=== PATIENT | female | born 1950 | race Two or more races ===

== ENCOUNTER 2025-01-24 15:25 | Inpatient (IN) | payer MEDICARE, SELFPAY ==
[2025-01-24] VITALS (13 sets, daily range): BP systolic 108–152; BP diastolic 52–87; PULSE 76–113; RESP 15–98; TEMP 36.9–39.5; O2SAT 94–99
--- NOTE | 2025-01-24 16:12 | EKG_ITS ---
[facility] Test Date: 2025-01-24 Pat Name: CORIE VILLAFANA Department: Room: - Gender: Female Vp: : 1950 Requested By: Malachi Frederick Order Number: [id number] Reading MD: Malachi Frederick Measurements Intervals [place] Rate: 112 P: -2 WV: 178 QRS: 54 QRSD: 86 T: -3 QT: 259 QTc: 354 Interpretive Statements SINUS TACHYCARDIA LOW QRS VOLTAGE IN PRECORDIAL LEADS [QRS DEFLECTION < 1.0 mV IN CHEST LEADS] POSSIBLE RIGHT VENTRICULAR CONDUCTION DELAY [RSR (QR) IN V1/V2] POSSIBLE INFERIOR MYOCARDIAL INFARCTION , PROBABLY OLD [30 ms Q WAVE IN II/aVF] ABNORMAL RHYTHM ECG No previous ECG available for comparison /store/S0/[id number].pdf
--- NOTE | 2025-01-24 16:12 | XR_ITS ---
Examination: CT abdomen and pelvis without contrast. Coronal 3-D reconstructions. Sagittal 2-D reconstructions. Date and time of exam: January 24, 2025, 1640 hours INDICATIONS: Fever chills abdominal pain beginning 2 days ago. CTDI: vol (mGy): 8.06 DLP: (mGycm): 410 Technique: Axial images of the abdomen have been obtained, 3 mm slice thickness Intravenous contrast material has not been administered. Low dose protocols were performed. One or more of the following dose reduction techniques were used; automated exposure control, adjustment of the mA and/or KV according to patient size, use of iterative reconstruction technique. Findings: No focal liver or splenic lesions., Liver is nodular in contour No extrahepatic biliary tract dilatation. Mild right hydronephrosis perinephric stranding, no renal or ureteral calculi No bladder mass or bladder calculi. No bowel obstruction No pericecal inflammatory change The Sriram structures are intact. IMPRESSION: Mild right hydronephrosis, consider urinary tract infection
--- NOTE | 2025-01-24 16:13 | XR_ITS ---
EXAMINATION: AP chest single view TECHNIQUE: Upright AP chest single view Date and time: January 24, 2025, 1624 hours INDICATIONS: Chest pain today, sepsis alert FINDINGS: Normal heart size No pneumonia or pulmonary edema. Prominent osteopenia IMPRESSION: No pneumonia or pulmonary edema
--- NOTE | 2025-01-24 16:15 | EDNOTE_ITS ---
ED Fever RME/HPI General Chief Complaint: Fever Stated Complaint: Fever, shaking, chills Time Seen by Provider: 01/24/25 15:46 Arrival date/time: 01/24/25 15:25 75-year-old female patient with significant history of hypertension diabetes mellitus, was brought in by family for evaluation regarding fever chills and diaphoresis. Has been sick since yesterday,'s chills, not feeling well, sleepy, severity moderate. 2 days ago patient complained of right flank pain, dysuria, severity moderate no vomiting no diar niurka no constipation no cough no other complaints noted. Sepsis alert was initiated right away for low-grade fever and tachycardia. Related Data Allergies Allergy/AdvReac Type Severity Reaction Status Date / Time No Known Allergies Allergy Verified 01/24/25 15:28 Review of Systems Review of Systems Narrative Review of Systems: Review of system reviewed and within normal limits except mentioned in HPI Physical Exam Narrative Physical exam: VITAL SIGNS: Reviewed. GENERAL APPEARANCE: Alert and interactive, follows commands, no acute distress, HEAD AND FACE: Non-traumatic. ENT: PERRL, pink conjunctivitis, eyelid no trauma, Mucous membrane moist. NECK: Supple, nontender, no nuchal rigidity. CHEST: No tenderness, no crepitus, no paradoxical movement, no retractions. LUNGS: Clear, well ventilated, symmetric, no rales, no wheezing, no ronchi, no stridor, good breath sounds bilaterally. HEART: Regular rate, regular rhythm, no murmur, no gallops. ABDOMEN: Soft, positive bowel sounds, nondistended, no guarding, nontender, no rebound, no masses, RECTAL: Deferred. GENITAL: Deferred. NEUROLOGICAL: Gross motor function intact sensory function intact, Appropriate for age. MUSCULOSKELETAL: low back nontender, full range of motion. EXTREMITIES: Nontender, full range of motion. SKIN: Color pink, dry, no rash, no lacerations, no abrasions, no contusions. LYMPHATICS: Deferred. Course Quality Measures none Orders Category Date Time Status Bedside COVID-19 Antigen Test NOW Care 01/24/25 16:14 Active COVID-19 Screening Questionnaire NOW Care 01/24/25 19:55 Active Hypnotherapist STAT Care 01/24/25 16:12 Active Continuous Pulse Oximetry STAT Care 01/24/25 16:12 Completed Decision to Admit X1 Care 01/24/25 19:55 Active EKG (ED ONLY) *Do not use* NOW Care 01/24/25 16:12 Completed In and Out Catheter X1PRN Care 01/24/25 16:12 Active Insert IV NOW Care 01/24/25 16:12 Active NPO STAT Care 01/24/25 16:12 Active Strict Intake and Output Routine Care 01/24/25 16:[address] abdomen pelvis wo con Stat Exams 01/24/25 16:12 Completed EKG (ED Only) Stat Exams 01/24/25 16:12 Draft XR chest 1V SEPSIS PROTOCOL Stat Exams 01/24/25 16:13 Completed B-Type Natriuretic Peptide Stat Lab 01/24/25 16:23 Completed Blood Culture (Lab) Stat Lab 01/24/25 16:23 Received CBC Stat Lab 01/24/25 16:23 Completed Comprehensive Metabolic Panel Stat Lab 01/24/25 16:23 Completed LDH (Lactate Dehydrogenase) Stat Lab 01/24/25 16:23 Completed Lactate (Lactic Acid) Stat Lab 01/24/25 16:23 Completed Lactic Acid, 3 HR Stat Lab 01/24/25 19:30 Ordered Lipase Stat Lab 01/24/25 16:23 Completed Magnesium Stat Lab 01/24/25 16:23 Completed Partial Thromboplastin Time Stat Lab 01/24/25 16:23 Completed Phosphorous Stat Lab 01/24/25 16:23 Completed Procalcitonin Stat Lab 01/24/25 16:23 Completed Prothrombin Time with INR Stat Lab 01/24/25 16:23 Completed Troponin I Stat Lab 01/24/25 16:23 Completed Urinalysis, C/S if Indicated Stat Lab 01/24/25 17:30 Completed Urine Culture Stat Lab 01/24/25 17:30 Received Acetaminophen Tab [Tylenol ES Tab] Med 01/24/25 17:37 Discontinued 1,000 mg PO X1 ONE Ibuprofen Tab [Motrin Tab] Med 01/24/25 18:46 Discontinued 800 mg PO X1 ONE Ketorolac Inj [Toradol Inj] Med 01/24/25 17:37 Discontinued 30 mg IVP X1 ONE Ringers Lactated 1000 ml [Lactated Ringers] 1,000 ml Med 01/24/25 16:12 Discontinued IV 999 mls/hr Ringers Lactated 1000 ml [Lactated Ringers] 1,000 ml Med 01/24/25 18:46 Discontinued IV 999 mls/hr cefTRIAXone/D5w 1gm IV premix [Rocephin/D5w 1gm IV Med 01/24/25 16:12 Discontinued premix] 1 gm in 50 ml IV X1 Oxygen Delivery NOW RT 01/24/25 16:12 Active Vital Signs Vital signs: Vital Signs Temperature 99.4 F 01/24/25 15:37 Pulse Rate 113 H 01/24/25 15:37 Respiratory Rate 20 01/24/25 15:37 Blood Pressure 143/65 H 01/24/25 15:37 Pulse Oximetry (%) 98 01/24/25 15:37 Oxygen Delivery Method Room Air 01/24/25 15:37 Fever MDM Narrative MDM Narrative:: 01/24/25 15:25 75-year-old female patient with significant history of hypertension diabetes mellitus, was brought in by family for evaluation regarding fever chills and diaphoresis. Has been sick since yesterday,'s chills, not feeling well, sleepy, severity moderate. 2 days ago patient complained of right flank pain, dysuria, severity moderate no vomiting no diarrhea no constipation no cough no other complaints noted. Sepsis alert was initiated right away for low-grade fever and tachycardia. EKG showed sinus tachycardia, ventricular rate of 112 bpm, no ST segment elevation depression noted. CBC showed leukocytosis 12.5, urinalysis significant for UTI glucose 268 patient is diabetic, lactic acid 0.4 Pro-Brian [address] scan of the abdomen and pelvis showed mild right hydronephrosis with perinephric periureteral fat stranding which may be related to recently passed right ureteric calculus versus pyelo ureteral nephritis. Patient received IV fluids total 2 L, Tylenol, Motrin, IV ceftriaxone. Plan of care discussed with family who agrees to be admitted. For sepsis secondary to acute pyelonephritis. Discussed with hospitalist, who admitted the patient. Patient data External records reviewed:: None Clinical information provided by:: patient Social determinants that could affect healthcare access:: none Patient has the following chronic illnesses:: Diabetes mellitus hypertension How is presenting disease/condition affected by chronic disease/condition?: exacerbated by Evaluation data The following diagnostics were reviewed and interpreted by me:: lab results, radiology exam(s) and EKG tracing(s) Lab and/or radiology exams considered but not ordered:: None Interpretation Summary: See MDM Medications / Prescriptions Medications or Prescriptions considered but not ordered:: None Medication administrations:: Medication Administration History Discontinued Medications Acetaminophen (Acetaminophen 500 Mg Tablet) 1,000 mg PO X1 ONE Stop: 01/24/25 17:38 Last Admin: 01/24/25 17:42 Dose: 1,000 mg Documented By: EF Lactated Ringer's (Lactated Ringers) 1,000 mls @ 999 mls/hr IV .Q1H1M ONE Stop: 01/24/25 17:12 Last Infusion: 01/24/25 18:45 Dose: Infused Documented By: Admin: 01/24/25 17:44 Dose: 999 mls/hr Documented By: EF Ceftriaxone Sodium/Dextrose (Rocephin/D5w 1gm Iv Premix) 1 gm in 50 mls @ 100 mls/hr IV X1 ONE Stop: 01/24/25 16:41 Last Infusion: 01/24/25 18:13 Dose: Infused Documented By: Admin: 01/24/25 17:43 Dose: 100 mls/hr Documented By: EF Lactated Ringer's (Lactated Ringers) 1,000 mls @ 999 mls/hr IV .Q1H1M ONE Stop: 01/24/25 19:46 Last Admin: 01/24/25 18:51 Dose: 999 mls/hr Documented By: EF Ibuprofen (Ibuprofen Tab 400 Mg Tablet) 800 mg PO X1 ONE Stop: 01/24/25 18:47 Last Admin: 01/24/25 18:51 Dose: 800 mg Documented By: EF Ketorolac Tromethamine (Ketorolac Inj 30 Mg/Ml Vial) 30 mg IVP X1 ONE Stop: 01/24/25 17:38 Last Admin: 01/24/25 17:42 Dose: Not Given Documented By: EF Non-Admin Reason: Cancelled by Provider See [facility] Consultations Consultation(s) initiated? (list below): No Diagnosis Fever Differential Diagnosis: pyelonephritis, viral infection and sepsis Most likely diagnosis given after review of the tests above:: Sepsis secondary to acute pyelonephritis Admission Indicated Admission indicated?: indicated Admission Request Was there a request for admission?: Yes Admission Attestation Admission request attestation: [facility]. Discussed patients ED course, exam findings, labs, and radiology results. The Hospitalist [agrees to accept the patient for admission. Disposition Plan Disposition Plan: Admit Discharge Plan Plan Patient Disposition: Admit Acute Care w/in Hospital Prescriptions/Referrals Referrals: No Primary/Family,Physician [Primary Care Provider] - In 1 week Problem List Clinical Impression: Sepsis, Acute pyelonephritis Patient/Caregiver Discharge Instructions Print Language: Qatari Stand Alone Forms: Regina Award Info., Patient Portal Info Letter
[2025-01-24 16:35] LABS: Lactate (Lactic Acid) 2.4 mMol/L (0.4-2.0)
[2025-01-24 16:49] LABS: Basophils # (Auto) 0.0 Thou/mm3 (0.0-0.2); Basophils % (Auto) 0 % (0-2.5); Eosinophils # (Auto) 0.0 Thou/mm3 (0.0-0.5); Eosinophils % (Auto) 0 % (0-10); Hematocrit 36.6 % (36.0-46.0); Hemoglobin 12.2 g/dL (12.0-16.0); Immature Granulocytes Auto 0.04 Thou/mm3 (0.00-0.00); Lymphocytes # (Auto) 0.9 Thou/mm3 (1.0-4.8); Lymphocytes % (Auto) 7 % (10-50); Mean Corpuscular HGB Conc 33.3 g/dl (31.0-37.0); Mean Corpuscular Hemoglobin 25.6 pg (25.0-35.0); Mean Corpuscular Volume 77 fL (80-100); Monocytes # (Auto) 0.9 Thou/mm3 (0.0-0.8); Monocytes % (Auto) 7 % (0-12); Neutrophils # (Auto) 10.7 Thou/mm3 (1.8-7.7); Neutrophils % (Auto) 85 % (37-80); Nucleated Red Blood Cell # 0.00 Thou/mm3 (0.00-0.00); Nucleated Red Blood Cell % 0 /100 WBC (0); Platelet Count 171 Thou/mm3 (140-440); RDW Standard Deviation 39.0 fL (36.4-46.3); Red Blood Count 4.76 Miln/mm3 (4.00-5.20); White Blood Count 12.5 Thou/mm3 (3.6-11.0)
[2025-01-24 17:15] LABS: Alanine Aminotransferase 28 U/L (10-49); Albumin, Serum 4.7 gm/dL (3.4-4.8); Albumin/Globulin Ratio 1.8 (1.2-2.2); Alkaline Phosphatase 84 U/L (46-116); Anion Gap 10 (7-16); Aspartate Amino Transferase 23 U/L (0-34); BUN/Creatinine Ratio 14 Ratio (12-20); Bilirubin,Total 1.1 mg/dL (0.3-1.2); Blood Urea Nitrogen 14 mg/dL (9-23); Calcium 9.4 mg/dL (8.3-10.6); Calcium (Corrected) 9.4 mg/dL (8.5-10.1); Carbon Dioxide 26.9 mMol/L (20.0-31.0); Chloride 96 mMol/L (98-107); Creatinine (Component) 1.0 mg/dL (0.6-1.3); Globulin 2.6 gm/dL (2.3-3.5); Glucose 268 mg/dL (74-106); LDH (Lactate Dehydrogenase) 184 U/L (120-246); Lipase 26 U/L (12-53); Magnesium 1.7 mg/dL (1.6-2.6); Osmolality,Calculated 275 (275-295); Phosphorous 2.7 mg/dL (2.4-5.1); Potassium 3.6 mMol/L (3.4-5.1); Sodium 133 mMol/L (136-145); Total Protein 7.3 gm/dL (5.7-8.2); Troponin I < 0.002 ng/mL (0.0-0.045); eGFR 59 See Note
[2025-01-24 17:20] LABS: Procalcitonin 5.30 ng/ml (0.0-0.49)
[2025-01-24 17:21] LABS: INR 1.1 (0.9-1.3); Partial Thromboplastin Time 30.8 Seconds (22.0-36.0); Prothrombin Time 11.6 Seconds (9.0-12.2)
[2025-01-24 17:29] LABS: B-Type Natriuretic Peptide 46 pg/mL (0-100)
[2025-01-24 17:39] LABS: Collection Type, Urine Clean Catch
[2025-01-24] MEDS: ACETAMINOPHEN 500 MG TABLET 1000 MG PO (17:42)
[2025-01-24] MEDS: cefTRIAXone/D5w 1gm IV premix 1 GM/50 ML BAG IV (17:43)
[2025-01-24] MEDS: RINGERS LACTATED 1000 ML 1,000 ML 999 ML IV ×2 (17:44→18:51)
[2025-01-24 17:45] LABS: Bilirubin,Urine Negative (Negative); Blood,Urine 2+ (Negative); Clarity,Urine Turbid (Clear/Hazy); Color,Urine Lt-Yellow (Lt Yel-Yel); Culture Indicated,Urine Yes; Glucose, Urine 4+ (Negative); Ketones,Urine Negative (Negative); Leukocyte Esterase,Urine Positive (Negative); Nitrite,Urine Positive (Negative); PH,Urine 6.5 (5.0-7.0); Protein,Urine 1+ (Neg - Trace); RBC,Urine 66 /hpf (0-3); Specific Gravity,Urine 1.016 (1.001-1.035); Squamous Epithelial Cell,Urine 1 /hpf (0-5); Urobilinogen,Urine Negative mg/dL (0.0-1.0); WBC,Urine 103 /hpf (0-5)
--- NOTE | 2025-01-24 18:37 | PRELIM_ITS ---
CT scan of the abdomen and pelvis without intravenous contrast (axial sections with sagittal and coronal reformats) January 24, 2025 1640 hours Clinical History: Right flank pain Radiation Dose: Total exam DLP 410 mGy/cm Comparison: No prior study is available for comparison. Findings: The lung bases are clear. There is mild right hydroureteronephrosis with perinephric, periureteric fat stranding. No ureteric calculus is noted. The liver demonstrates a nodular contour. The gallbladder, pancreas, spleen, and adrenals are unremarkable on this noncontrast study. No evidence of bowel obstruction. A moderate amount of fecal material is present in the colon. The appendix is not visualized. There is no mesenteric or retroperitoneal adenopathy. The urinary bladder is unremarkable. There is no free fluid or free air. The osseous structures are unremarkable. Impression: Mild right hydroureteronephrosis with perinephric, periureteric fat stranding which may be related to recently passed right ureteric calculus or pyelo uretronephritis. Recommend clinical and laboratory correlation. Liver demonstrates a nodular contour, which may represent cirrhosis. Report Electronically Signed By: Shady Mendoza 01/24/2025 6:37:26 PM [EST]
[2025-01-24] MEDS: IBUPROFEN TAB 400 MG TABLET 800 MG PO (18:51)
[2025-01-24 19:30] LABS: Reflex Lactate? Y
--- NOTE | 2025-01-24 20:03 | PRELIM_ITS ---
Radiograph of the chest (single view). January 24, 2025 1622 hours Clinical history: Sepsis Comparison: None. Findings: The heart, mediastinum and pulmonary william are unremarkable. There is a calcified granuloma in the left mid lung zone. The lungs are otherwise clear. There is no pleural effusion. The bony thorax is unremarkable. Impression: Normal radiograph of the chest. Report Electronically Signed By: Kevan Cardona 01/24/2025 8:03:31 PM [EST]
[2025-01-24 20:06] LABS: Lactic Acid, 3 HR 2.0 mMol/L (0.4-2.0)
--- NOTE | 2025-01-24 20:57 | ESHP_ITS ---
Documentation for date of: 01/24/25 HPI History of Present Illness History of present illness: 75-year-old female patient with significant history of hypertension diabetes mellitus, was brought in by family for evaluation regarding fever chills and diaphoresis. In the ED Sepsis alert was initiated right away for low-grade fever and tachycardia. Patient admitted for sepsis r/o 2/2 pyelonephritis ED Course Summary Vitals: BP 143/65 HR 113 RR 20 T 99.4 --> 103.1F O2 sat 98% RA Labs: WBC 12.5 MCV 77 coags wnl, Na 133 (corrected Na 136) glucose 268, lactic acid 2.4, procal 5.3. UA was turbid protein +1 glucose +4 blood +2 RBC 66 WBC 103 Leuk Esterase+ Sq epi +1 Imaging: EKG sinus tachy QTC 354. CXR no PNA or pulm edema. CTAP mild right hydronephrosis Treatment: Ibuprofen, LR 2L, tylenol, and ceftriaxone 1g IV Upon initial examination patient was sitting comfortably in gurney. States pain management has helped her tremendously and her back pain has resolved. She first noticed urinary discomfort about one month ago when driving to [place] from [place] to spend Thanksgiving with her brother. She reports that they made frequent stops for her to urinate and that she did not hold her bladder for too long. She is a who has not had any change in sexual partners or complaints of vaginal dryness. She does not take a SGLT2i. 2 days ago she felt increased urinary discomfort, fevers, chills, and diaphoresis, and began noticing right sided flank pain. She denies vomiting, nausea, diarrhea, constipation, blood in urine. Code: Full Insulin: 30 units x1/day im AM, Metformin 100mg BID Medical Hx: T2DM on insulin, HTN Medications: Unsure of BP medicine, pending med rec Allergies: KNA Surgical history: Denies Fhx: Noncontributory Living: In [place], staying the month in [place] with brother for Thanksgiving Alcohol: Denies Cigarettes/tobacco: 1 cig/day for 20 years Recreational drugs: Denies Patient admitted for: Sepsis r/o most likely secondary to pyelonephritis All 12 systems reviewed and were negative except otherwise stated in HPI. Exam Vital Signs Temp Pulse Resp BP Pulse Ox O2 Del Method 99.3 F 97 16 120/77 96 Room Air 01/24/25 19:51 01/24/25 19:03 01/24/25 19:03 01/24/25 19:03 01/24/25 19:03 01/24/25 19:03 Narrative Exam GENERAL APPEARANCE: AOx4. NAD, activity normal for age, well developed/ well nourished, no cyanosis, pallor, or diaphoresis. HEENT: Normocephalic atraumatic, no facial trauma, neck is supple. Lids/conjunctiva normal. Mucous membranes moist, nares normal, lips/teeth normal uvula midline without oral pharyngeal erythema, exudate or swelling TMs normal bilaterally. No lymphangitis/lymphedema. CARDIAC: Regular rate and rhythm, S1+S2 heard. No murmurs, rubs, or gallops noted RESPIRATORY: respiratory effort normal, speaks in full sentences, no tripod position, no accessory muscle use. Lungs clear to auscultation without rhonchi, wheezes, rales ABDOMINAL: NBS. Soft, ND/NT. No evidence of fluid wave. No pulsatile masses on exam, rebound tenderness, Rushing sign or pain over Mcburney's point. MUSCLES/EXTREMITIES: No abnormal range of motion, no swelling. DERM: Warm, pink and dry. No rashes, dermatoses, petechiae or lesions. NEUROLOGICAL: Speech is clear and appropriate. Normal level of consciousness. Gait and coordination are normal. 5/5 strength in all extremities. PSYCH: Normal mood and affect. Judgement/competence is appropriate Urinary: -CVA tenderness (patient reports much improved with pain medicine) Results: Labs 01/26/25 04:20 01/26/25 04:20 Labs: Short CBC 01/24/25 Range/Units 16:23 WBC 12.5 H (3.6-11.0) Thou/mm3 Hgb 12.2 (12.0-16.0) g/dL Hct 36.6 (36.0-46.0) % Plt Count 171 (140-440) Thou/mm3 BMP 01/24/25 16:23 Sodium 133 L Potassium 3.6 Chloride 96 L Carbon Dioxide 26.9 BUN 14 Creatinine 1.0 Glucose 268 H Calcium 9.4 Cardiac Enzymes 01/24/25 Range/Units 16:23 Troponin I < 0.002 (0.0-0.045) ng/mL Liver Function 01/24/25 Range/Units 16:23 Total Bilirubin 1.1 (0.3-1.2) mg/dL AST 23 (0-34) U/L ALT 28 (10-49) U/L Alkaline Phosphatase 84 (46-116) U/L Albumin 4.7 (3.4-4.8) gm/dL Urine 01/24/25 Range/Units 17:30 Urine Color Lt-Yellow (Lt Yel-Yel) Urine Clarity Turbid A (Clear/Hazy) Urine pH 6.5 (5.0-7.0) Ur Specific [place] 1.016 (1.001-1.035) Urine Protein 1+ A (Neg - Trace) Urine Glucose (UA) 4+ A (Negative) Quality Measures Quality Measures VTE prophylaxis Advance care planning discussed with:: patient Medications Home Medications and Allergies Home Medications ?Medication ?Instructions ?Recorded ?Confirmed ?Type amlodipine 10 mg tablet 10 mg PO QDAY 01/25/2501/25 History atorvastatin 20 mg tablet (Lipitor) 20 mg PO QDAY 12/1101/25/25 History lisinopril 20 1 tab PO QDAY 01/25/2501/25 History mg-hydrochlorothiazide 25 mg tablet metformin 1,000 mg tablet 1,000 mg PO BID 01/25/2512/11 History Allergies Allergy/AdvReac Type Severity Reaction Status Date / Time No Known Allergies Allergy Verified 01/24/25 15:28 Visit Medications Acetaminophen (Acetaminophen 325 Mg Tablet) 650 mg PO Q6H PRN PRN Reason: Fever >100.4 or pain 1-3 Stop: 02/23/25 20:37 Hydrocodone Bitart/Acetaminophen (Hydrocodone/Apap 5/325 Tablet) 1 tab PO Q4HR PRN PRN Reason: PAIN SCALE 4-6 (Moderate Stop: 01/29/25 20:37 Docusate Sodium (Docusate Sod 100 Mg Capsule) 100 mg PO QDAY [facility]; Protocol Stop: 02/24/25 08:59 Famotidine (Famotidine Inj 10 Mg/Ml Vial 2 Ml) 20 mg IVP Q12HR [facility] Stop: 02/23/25 20:59 Heparin Sodium (Porcine) (Heparin Sod Inj 5000 Unit/Ml Vial) 5,000 unit SC Q12HR NIKOLAS Stop: 02/07/25 20:59 Lactated Ringer's (Lactated Ringers) 1,000 mls @ 19.2 mls/hr IV .Q24H NIKOLAS Stop: 02/23/25 20:44 Ceftriaxone Sodium 2 gm/ (Sodium Chloride) 50 mls @ 100 mls/hr IV QDAY NIKOLAS Stop: 01/31/25 20:48 Ondansetron HCl (Ondansetron Inj 2 Mg/Ml Inj 2 Ml) 4 mg IVP Q6H PRN; Protocol PRN Reason: NAUSEA OR VOMITING Stop: 02/23/25 20:37 Discontinued Medications Acetaminophen (Acetaminophen 500 Mg Tablet) 1,000 mg PO X1 ONE Stop: 01/24/25 17:38 Last Admin: 01/24/25 17:42 Dose: 1,000 mg Lactated Ringer's (Lactated Ringers) 1,000 mls @ 999 mls/hr IV .Q1H1M ONE Stop: 01/24/25 17:12 Last Infusion: 01/24/25 18:45 Dose: Infused Ceftriaxone Sodium/Dextrose (Rocephin/D5w 1gm Iv Premix) 1 gm in 50 mls @ 100 mls/hr IV X1 ONE Stop: 01/24/25 16:41 Last Infusion: 01/24/25 18:13 Dose: Infused Lactated Ringer's (Lactated Ringers) 1,000 mls @ 999 mls/hr IV .Q1H1M ONE Stop: 01/24/25 19:46 Last Infusion: 01/24/25 19:52 Dose: Infused Ibuprofen (Ibuprofen Tab 400 Mg Tablet) 800 mg PO X1 ONE Stop: 01/24/25 18:47 Last Admin: 01/24/25 18:51 Dose: 800 mg Ketorolac Tromethamine (Ketorolac Inj 30 Mg/Ml Vial) 30 mg IVP X1 ONE Stop: 01/24/25 17:38 Last Admin: 01/24/25 17:42 Dose: Not Given Assessment & Plan Plan 75-year-old female patient with significant history of hypertension diabetes mellitus, was brought in by family for evaluation regarding fever chills and diaphoresis. In the ED Sepsis alert was initiated right away for low-grade fever and tachycardia. Patient admitted for sepsis r/o 2/2 pyelonephritis #Sepsis #UTI/pyelonephritis #Lactic acidosis Patient came in and found to have 2 or more SIRS criteria (Vbpj692>100.4, HR 113> 90, WBC >12,000, renal source, lactic acid 2.4) and was evaluated for sepsis. Pateint started on IV abx and fluids in the ED Temperature decreased to 99.3F, HR downtrended to 86, lactic acid 2.4--> 2.0). Patient endorses urinary discomfort with fevers chills and diaphoresis with 2 days of right flank pain. On inital evaluation the flank pain had resolved with pain management by the ED. She has not noticed any blood in her urine, recent vaginal dryness, no change in sexual partners as patient is a . No history of UTIs other than when she gave decades ago. She does not take SGLT2i. UA was turbid protein +1 glucose +4 blood +2 RBC 66 WBC 103 Leuk Esterase+ Sq epi +1. CTAP mild right hydronephrosis Plan: -Ceftriaxone 2g IV (01/24 - -IVF LR 30cc/kg --> 19.2mL/hr -FUP urine cx:___ -FUP blood cx:___ -Narco 5 Q4HR for pain control 4-6 #Asymptomatic mild hyponatremia Na133 Most likely pseudohyponatremia/dilutional. High blood glucose increases plasma osmolality. Water shifts out of cells into extracellular space --> diluting serum sodium concentration. Correction formula--> Corrected Na=Measured Na+1.6((glucose-100)/100) 133+1.6x((268-100)/100)= 135.7mEq/L Patient does not endorse any symptoms of headache, NV, fatigue, confusion, disorientation, muscle cramps, or increased urination. Plan: -Continue IV fluids -CTM renal panel in AM -Goal 4-6 Samir/L increase in sodium over 24 hours #Hx of T2DM requiring insulin Patient reports 30 units of insulin in AM at homoe and 1000mg BID metformin. Glucose 268 on admission. Plan: -ISS step 2 -Bedside glucose checks ACHS Health Maintenance: Code status: Full DVT prophylaxis: Heparin subq Q12HR GI prophylaxis: Famotidine Diet: Carb consistent Peterson: None Lines: PIV Supplemental O2: None [facility]UTI work up Patient seen and reviewed with attending Dr. Vaughan. Note written by Romie Santillan MD PGY-1 Attending Provider Attestation/Addendum After examination of the patient and review of the clinical data I feel that this patient needs admission to the hospital for further treatment/evaluation. Plan of care discussed with patient and is in agreement. I Ez Vaughan MD, attest that I was physically present for pace portions of evaluation, and examined patient, labs and imagings and plan of care were discussed with IM residents team, and I agree with the findings and plans documented above.
[2025-01-24] MEDS: FAMOTIDINE INJ 10 MG/ML VIAL 2 ML 20 MG IVP (23:17)
[2025-01-24] MEDS: RINGERS LACTATED 1000 ML 1,000 ML 75 ML IV (23:19)
[2025-01-24] MEDS: HEPARIN SOD INJ 5000 UNIT/ML VIAL SC (23:19)
[2025-01-25] VITALS (12 sets, daily range): BP systolic 93–147; BP diastolic 52–84; PULSE 71–102; RESP 16–96; TEMP 36.1–39.5; O2SAT 95–98
[2025-01-25 05:16] LABS: Basophils # (Auto) 0.0 Thou/mm3 (0.0-0.2); Basophils % (Auto) 0 % (0-2.5); Eosinophils # (Auto) 0.0 Thou/mm3 (0.0-0.5); Eosinophils % (Auto) 0 % (0-10); Hematocrit 32.3 % (36.0-46.0); Hemoglobin 10.9 g/dL (12.0-16.0); Immature Granulocytes Auto 0.05 Thou/mm3 (0.00-0.00); Lymphocytes # (Auto) 0.7 Thou/mm3 (1.0-4.8); Lymphocytes % (Auto) 6 % (10-50); Mean Corpuscular HGB Conc 33.7 g/dl (31.0-37.0); Mean Corpuscular Hemoglobin 25.8 pg (25.0-35.0); Mean Corpuscular Volume 77 fL (80-100); Monocytes # (Auto) 1.0 Thou/mm3 (0.0-0.8); Monocytes % (Auto) 9 % (0-12); Neutrophils # (Auto) 9.0 Thou/mm3 (1.8-7.7); Neutrophils % (Auto) 84 % (37-80); Nucleated Red Blood Cell # 0.00 Thou/mm3 (0.00-0.00); Nucleated Red Blood Cell % 0 /100 WBC (0); Platelet Count 152 Thou/mm3 (140-440); RDW Standard Deviation 38.6 fL (36.4-46.3); Red Blood Count 4.22 Miln/mm3 (4.00-5.20); White Blood Count 10.7 Thou/mm3 (3.6-11.0)
[2025-01-25 06:13] LABS: Alanine Aminotransferase 21 U/L (10-49); Albumin, Serum 4.0 gm/dL (3.4-4.8); Albumin/Globulin Ratio 1.9 (1.2-2.2); Alkaline Phosphatase 73 U/L (46-116); Anion Gap 7 (7-16); Aspartate Amino Transferase 20 U/L (0-34); BUN/Creatinine Ratio 10 Ratio (12-20); Bilirubin,Total 1.2 mg/dL (0.3-1.2); Blood Urea Nitrogen 8 mg/dL (9-23); Calcium 9.1 mg/dL (8.3-10.6); Calcium (Corrected) 9.1 mg/dL (8.5-10.1); Carbon Dioxide 26.8 mMol/L (20.0-31.0); Cardiac Risk Estimate 1.9 RATIO (3.7-5.6); Chloride 100 mMol/L (98-107); Cholesterol 91 mg/dL (132-200); Creatinine (Component) 0.8 mg/dL (0.6-1.3); Estimated Creatinine Clearance 53.4 mL/min (>60); Globulin 2.1 gm/dL (2.3-3.5); Glucose 209 mg/dL (74-106); HDL Cholesterol 48 mg/dL (40-60); LDL Cholesterol,Calculated 24 mg/dL (0-130); Magnesium 1.6 mg/dL (1.6-2.6); Osmolality,Calculated 272 (275-295); Phosphorous 2.4 mg/dL (2.4-5.1); Potassium 3.2 mMol/L (3.4-5.1); Sodium 134 mMol/L (136-145); Total Protein 6.1 gm/dL (5.7-8.2); Triglycerides 93 mg/dL (30-150); eGFR > 60 See Note
[2025-01-25] MEDS: ACETAMINOPHEN 325 MG TABLET 650 MG PO ×3 (07:05→20:42)
[2025-01-25] MEDS: INSULIN LISPRO (AdmeLOG) 1 UNIT/0.01 ML UNIT SC ×4 (07:10→20:48)
[2025-01-25] MEDS: DOCUSATE SOD 100 MG CAPSULE PO (08:00)
[2025-01-25] MEDS: HEPARIN SOD INJ 5000 UNIT/ML VIAL SC ×2 (08:00→20:21)
[2025-01-25] MEDS: FAMOTIDINE INJ 10 MG/ML VIAL 2 ML 20 MG IVP ×2 (08:00→20:12)
[2025-01-25] MEDS: Magnesium Sulfate 2 GM Ivpb 2 GM/50 ML BAG IV (08:54)
[2025-01-25] MEDS: HYDROcodone/APAP 5/325 TABLET 1 TAB PO ×2 (12:28→18:35)
--- NOTE | 2025-01-25 14:20 | PC.PT ---
Patient approached for PT evaluation but requested to hold off for today due to ongoing fever and not feeling well.
--- NOTE | 2025-01-25 15:53 | ESPR_ITS ---
<Statement entered by Bradly Mcdonald MD - 02/05/25 08:05> I reviewed above note and agree with findings and plans. I have also personally examined the patient with medicine team and went over assessment and plan with medical team including application internship and resident physician. Documentation for date of: 01/25/25 Subjective Subjective Interval history: Patient is seen and examined at bedside. Admitted overnight in view of urinary tract infection with suspected underlying right pyelonephritis Denies any other complaints and reported that she is doing well and no burning micturition or chills as of this morning Labs done this morning significant for potassium 3.2 which is repleted with 40 mill colons of oral potassium and noted to have glucose of 209 Started on degludec 8 units at bedtime. Will adjust the dose of the insulin based on morning blood sugars and will continue sliding scale for now HbA1c is ordered, Will follow-up with results Pending urine cultures Exam Vital Signs Temp Pulse Resp BP Pulse Ox O2 Del Method O2 Flow Rate 98.0 F 101 H 16 121/64 96 Room Air 2 01/25/25 12:00 01/25/25 12:00 01/25/25 12:00 01/25/25 12:00 01/25/25 12:00 01/25/25 12:00 01/25/25 08:00 Narrative Exam General: Awake. HEENT: Normocephalic, atraumatic, mucous membranes moist. Heart: Regular rate and rhythm, no murmurs. Lungs: Clear to auscultation with no wheezing or crackles. Abdomen: Soft, nondistended, nontender, positive bowel sounds. ?No guarding or rebound tenderness. Neurologic: Alert and oriented x3, no gross neurological deficit, and patient able to move all 4 extremities. Extremities: No edema. Skin: No rash or ecchymoses. Objective Labs 01/25/25 04:50 01/25/25 04:50 Labs: Laboratory Results - last 24 hr 01/24/25 01/24/25 01/24/25 16:23 17:30 19:46 WBC 12.5 H RBC 4.76 Hgb 12.2 Hct 36.6 MCV 77 L MCH 25.6 MCHC 33.3 RDW Std Deviation 39.0 Plt Count 171 Neut % (Auto) 85 H Lymph % (Auto) 7 L [place] % (Auto) 7 Eos % (Auto) 0 Baso % (Auto) 0 Neut # (Auto) 10.7 H Lymph # (Auto) 0.9 L [place] # (Auto) 0.9 H Eos # (Auto) 0.0 Baso # (Auto) 0.0 Immature Gran # (Auto) 0.04 H Absolute Nucleated RBC 0.00 Immature Gran % 0 Nucleated RBC % 0 PT 11.6 INR 1.1 APTT 30.8 Sodium 133 L Potassium 3.6 Chloride 96 L Carbon Dioxide 26.9 Anion Gap 10 BUN 14 Creatinine 1.0 Estim Creat Clear Calc Not Performed. eGFR 59 L BUN/Creatinine Ratio 14 Glucose 268 H Calculated Osmolality 275 Lactic Acid 2.4 H 2.0 Calcium 9.4 Corrected Calcium 9.4 Phosphorus 2.7 Magnesium 1.7 Total Bilirubin 1.1 AST 23 ALT 28 Alkaline Phosphatase 84 Lactate Dehydrogenase 184 Troponin I < 0.002 B-Natriuretic Peptide 46 Total Protein 7.3 Albumin 4.7 Globulin 2.6 Albumin/Globulin Ratio 1.8 Triglycerides Cholesterol LDL Cholesterol, Calc HDL Cholesterol Cholesterol/HDL Ratio Lipase 26 Procalcitonin 5.30 H Ur Collection Type Clean Catch Urine Color Lt-Yellow Urine Clarity Turbid A Urine pH 6.5 Ur Specific [place] 1.016 Urine Protein 1+ A Urine Glucose (UA) 4+ A Urine Ketones Negative Urine Blood 2+ A Urine Nitrite Positive Urine Bilirubin Negative Urine Urobilinogen (Auto) Negative Ur Leukocyte Esterase Positive Urine RBC 66 H Urine WBC 103 H Ur Squamous Epith Cells 1 Urine Bacteria None Ur Culture Indicated? Yes 01/25/25 04:50 WBC 10.7 RBC 4.22 Hgb 10.9 L Hct 32.3 L MCV 77 L MCH 25.8 MCHC 33.7 RDW Std Deviation 38.6 Plt Count 152 Neut % (Auto) 84 H Lymph % (Auto) 6 L [place] % (Auto) 9 Eos % (Auto) 0 Baso % (Auto) 0 Neut # (Auto) 9.0 H Lymph # (Auto) 0.7 L [place] # (Auto) 1.0 H Eos # (Auto) 0.0 Baso # (Auto) 0.0 Immature Gran # (Auto) 0.05 H Absolute Nucleated RBC 0.00 Immature Gran % 1 H Nucleated RBC % 0 PT INR APTT Sodium 134 L Potassium 3.2 L Chloride 100 Carbon Dioxide 26.8 Anion Gap 7 BUN 8 L Creatinine 0.8 Estim Creat Clear Calc 53.4 L eGFR > 60 BUN/Creatinine Ratio 10 L Glucose 209 H D Calculated Osmolality 272 L Lactic Acid Calcium 9.1 Corrected Calcium 9.1 Phosphorus 2.4 Magnesium 1.6 Total Bilirubin 1.2 AST 20 ALT 21 Alkaline Phosphatase 73 Lactate Dehydrogenase Troponin I B-Natriuretic Peptide Total Protein 6.1 Albumin 4.0 D Globulin 2.1 L Albumin/Globulin Ratio 1.9 Triglycerides 93 Cholesterol 91 L LDL Cholesterol, Calc 24 HDL Cholesterol 48 Cholesterol/HDL Ratio 1.9 L Lipase Procalcitonin Ur Collection Type Urine Color Urine Clarity Urine pH Ur Specific [place] Urine Protein Urine Glucose (UA) Urine Ketones Urine Blood Urine Nitrite Urine Bilirubin Urine Urobilinogen (Auto) Ur Leukocyte Esterase Urine RBC Urine WBC Ur Squamous Epith Cells Urine Bacteria Ur Culture Indicated? Quality Measures Quality Measures none Advance care planning discussed with:: patient Assessment & Plan Assessment Current Active Medications: Generic Name Dose Route Start Last Admin Trade Name Freq PRN Reason Stop Dose Admin Acetaminophen 650 mg 01/24/25 20:38 01/25/25 07:05 Acetaminophen 325 Mg Tablet PO 02/23/25 20:37 650 mg Q6H PRN Administration Fever >100.4 or pain 1-3 Hydrocodone Bitart/Acetaminophen 1 tab 01/24/25 20:38 01/25/25 12:28 Hydrocodone/Apap 5/325 Tablet PO 01/29/25 20:37 1 tab Q4HR PRN Administration PAIN SCALE 4-6 (Moderate Dextrose 25 ml 01/24/25 21:21 Dextrose 50%-Water Inj 50 Ml Syringe IV 02/23/25 21:20 Q15MIN PRN BG 50-70 responsive npo pt Dextrose 50 ml 01/24/25 21:21 Dextrose 50%-Water Inj 50 Ml Syringe IV 02/23/25 21:20 Q15MIN PRN BG <50 OR BG <70 & pt unresponsive Docusate Sodium 100 mg 01/25/25 09:00 01/25/25 08:00 Docusate Sod 100 Mg Capsule PO 02/24/25 08:59 100 mg QDAY NIKOLAS Administration Protocol Famotidine 20 mg 01/24/25 21:00 01/25/25 08:00 Famotidine Inj 10 Mg/Ml Vial 2 Ml IVP 02/23/25 20:59 20 mg Q12HR NIKOLAS Administration Glucagon 1 mg 01/24/25 21:21 Glucagon Inj 1 Mg Vial IM Q15MIN PRN BG <70, and no IV access Heparin Sodium (Porcine) 5,000 unit 01/24/25 21:00 01/25/25 08:00 Heparin Sod Inj 5000 Unit/Ml Vial SC 02/07/25 20:59 5,000 unit Q12HR NIKOLAS Administration Ceftriaxone Sodium 2 gm/ 50 mls @ 100 mls/hr 01/25/25 21:00 Sodium Chloride IV 02/01/25 20:59 2[address] [facility] Insulin Human Lispro 0 unit 01/25/25 07:30 01/25/25 11:30 Insulin Lispro (Admelog) 1 Unit/0.01 Ml Unit SC 02/24/25 07:29 4 unit ACHS NIKOLAS Administration Protocol Ondansetron HCl 4 mg 01/24/25 20:38 Ondansetron Inj 2 Mg/Ml Inj 2 Ml IVP 02/23/25 20:37 Q6H PRN NAUSEA OR VOMITING Protocol Plan 75-year-old female patient with significant history of hypertension diabetes mellitus, was brought in by family for evaluation regarding fever chills and diaphoresis. In the ED Sepsis alert was initiated right away for low-grade fever and tachycardia. Patient admitted for sepsis r/o 2/ pyelonephritis #Complicated UTI/ Suspected Right Pyelonephritis Patient came in and found to have 2 or more SIRS criteria (Phgs267>100.4, HR 113> 90, WBC >12,000, renal source, lactic acid 2.4). However, based upon further work-up, sepsis was ruled out and also patient does not noted to have any end organ damage. Patient endorses urinary discomfort with fevers chills and diaphoresis with 2 days of right flank pain. On inital evaluation the flank pain had resolved with pain management by the ED. She has not noticed any blood in her urine, recent vaginal dryness, no change in sexual partners as patient is a . No history of UTIs other than when she gave decades ago. She does not take SGLT2i. UA was turbid protein +1 glucose +4 blood +2 RBC 66 WBC 103 Leuk Esterase+ Sq epi +1. CTAP mild right hydronephrosis, Perinephric Stranding Plan: -Ceftriaxone 2g IV (01/24 - -IVF LR 30cc/kg given -FUP urine cx -FUP blood cx -[place] 5 Q4HR for pain control 4-6 #Asymptomatic mild hyponatremia Na133 at the time of presentation. Blood glucose is 268 Most likely pseudohyponatremia. Patient does not endorse any symptoms of headache, NV, fatigue, confusion, disorientation, muscle cramps, or increased urination. Plan: -Continue IV fluids -CTM renal panel in AM #Hx of T2DM requiring insulin Patient reports 30 units of insulin in AM at home and 1000mg BID metformin. Glucose 268 on admission. Plan: -ISS step 2 -Bedside glucose checks ACHS -Degludec 8 units at bedtime and will adjust the dose based on morning blood sugars Health Maintenance: Code status: Full DVT prophylaxis: Heparin subq Q12HR GI prophylaxis: Famotidine Diet: Carb consistent Peterson: None Lines: PIV Supplemental O2: None Disposition: Med tele Patient plan of care was discussed with the attending physician, Dr. Tamara Sparrow, PGY2
--- NOTE | 2025-01-25 15:53 | PD.RESEVENT ---
Documentation for date of: 01/25/25 Event Note Event Note: Around 12:10 PM, rapid response was called in view of chills and rigors Attended the rapid response Patient denies any other complaints except for the chills and rigors. Reported that she is feeling cold. Vitals done at the time significant for temperature of 101.7. Blood pressure is around 140 SBP and 90 DBP. Heart rate is within normal limits. Recommended to give Tylenol 650 mg orally and continue IV maintenance fluids and ceftriaxone 2 g IV daily Febrile episode could be due to endotoxin release from the infection Patient is reassured and no need of any labs at this point. Patient plan of care was discussed with the attending physician, Dr. Tamara Sparrow, PGY2
[2025-01-25] MEDS: cefTRIAXone 2 GM in SODIUM CHLORIDE 0.9% (Popper) 50 ML IV (20:05)
[2025-01-25] MEDS: INSULIN DEGLUDEC 5 UNIT/0.05 ML (PER 5 UNITS) 8 UNIT SC (20:50)
[2025-01-26] VITALS (10 sets, daily range): BP systolic 107–142; BP diastolic 59–89; PULSE 73–109; RESP 16–94; TEMP 36.3–40.2; O2SAT 92–96
--- NOTE | 2025-01-26 04:02 | PC.NURSE ---
T=100- pt refused cooling measures.
[2025-01-26 05:06] LABS: Basophils # (Auto) 0.0 Thou/mm3 (0.0-0.2); Basophils % (Auto) 0 % (0-2.5); Eosinophils # (Auto) 0.0 Thou/mm3 (0.0-0.5); Eosinophils % (Auto) 0 % (0-10); Hematocrit 34.7 % (36.0-46.0); Hemoglobin 11.4 g/dL (12.0-16.0); Immature Granulocytes Auto 0.02 Thou/mm3 (0.00-0.00); Lymphocytes # (Auto) 0.9 Thou/mm3 (1.0-4.8); Lymphocytes % (Auto) 13 % (10-50); Mean Corpuscular HGB Conc 32.9 g/dl (31.0-37.0); Mean Corpuscular Hemoglobin 25.2 pg (25.0-35.0); Mean Corpuscular Volume 77 fL (80-100); Monocytes # (Auto) 0.6 Thou/mm3 (0.0-0.8); Monocytes % (Auto) 9 % (0-12); Neutrophils # (Auto) 5.4 Thou/mm3 (1.8-7.7); Neutrophils % (Auto) 78 % (37-80); Nucleated Red Blood Cell # 0.00 Thou/mm3 (0.00-0.00); Nucleated Red Blood Cell % 0 /100 WBC (0); Platelet Count 141 Thou/mm3 (140-440); RDW Standard Deviation 39.1 fL (36.4-46.3); Red Blood Count 4.52 Miln/mm3 (4.00-5.20); White Blood Count 6.9 Thou/mm3 (3.6-11.0)
[2025-01-26 05:18] LABS: Alanine Aminotransferase 23 U/L (10-49); Albumin, Serum 4.3 gm/dL (3.4-4.8); Albumin/Globulin Ratio 1.7 (1.2-2.2); Alkaline Phosphatase 83 U/L (46-116); Anion Gap 7 (7-16); Aspartate Amino Transferase 20 U/L (0-34); BUN/Creatinine Ratio 9 Ratio (12-20); Bilirubin,Total 0.7 mg/dL (0.3-1.2); Blood Urea Nitrogen 6 mg/dL (9-23); Calcium 9.7 mg/dL (8.3-10.6); Calcium (Corrected) 9.7 mg/dL (8.5-10.1); Carbon Dioxide 29.2 mMol/L (20.0-31.0); Chloride 100 mMol/L (98-107); Creatinine (Component) 0.7 mg/dL (0.6-1.3); Estimated Creatinine Clearance 61.0 mL/min (>60); Globulin 2.6 gm/dL (2.3-3.5); Glucose 193 mg/dL (74-106); Magnesium 2.1 mg/dL (1.6-2.6); Osmolality,Calculated 274 (275-295); Phosphorous 2.5 mg/dL (2.4-5.1); Potassium 3.9 mMol/L (3.4-5.1); Sodium 136 mMol/L (136-145); Total Protein 6.9 gm/dL (5.7-8.2); eGFR > 60 See Note
[2025-01-26 05:25] LABS: Glucose Estimated Average 192 mg/dL (80-131); Hemoglobin A1C 8.3 % Hgb (4.8-6.0)
[2025-01-26] MEDS: INSULIN LISPRO (AdmeLOG) 1 UNIT/0.01 ML UNIT SC ×4 (07:42→20:31)
[2025-01-26] MEDS: HYDROcodone/APAP 5/325 TABLET 1 TAB PO ×2 (07:43→15:06)
[2025-01-26] MEDS: HEPARIN SOD INJ 5000 UNIT/ML VIAL SC ×2 (07:43→20:27)
[2025-01-26] MEDS: FAMOTIDINE INJ 10 MG/ML VIAL 2 ML 20 MG IVP (07:44)
[2025-01-26] MEDS: DOCUSATE SOD 100 MG CAPSULE PO (07:44)
--- NOTE | 2025-01-26 10:00 | PC.SS ---
Rounding: Pending UA Cults
--- NOTE | 2025-01-26 10:08 | ESPR_ITS ---
<Statement entered by Bradly Mcdonald MD - 02/09/25 15:17> I reviewed above note and agree with findings and plans. I have also personally examined the patient with medicine team and went over assessment and plan with medical team including internal communications writer and resident physician. <Statement entered by Oriana Sampson MD - 01/27/25 07:05> Patient was seen and examined by me personally. I have directly supervised and reviewed documentation by the team resident and agree with its findings with any exceptions or additional findings as below. Plan of care was discussed with the attending, Dr. Mcdonald. Oriana Sampson, PGY-3 Documentation for date of: 01/26/25 Subjective Subjective Interval history: Overnight, patient continued to spike fevers from 6 PM yesterday until at least 12 PM today. Patient was examined at bedside; they appear A&Ox3 and in NAD. Today, she endorses back pain, sore throat, cough, and continued dysuria (but is improving). Vitals/labs today significant for BP 136/80, WBC 10.7->6.9, blood glucose 209->193. HgbA1c came back at 8.3. Physical exam notable for some abdominal tenderness to palpation but was otherwise benign and unremarkable. 01/24 BCx shows NG24HR and 01/24 UCx is pending. At this time, patient will continue Rocephin 2g IV qD for ongoing treatment of her complicated UTI and pyelonephritis. Exam Vital Signs Temp Pulse Resp BP Pulse Ox O2 Del Method O2 Flow Rate 102.6 F H 88 20 137/67 H 93 L Room Air 2 01/26/25 08:00 01/26/25 08:00 01/26/25 08:00 01/26/25 08:00 01/26/25 08:00 01/26/25 08:00 01/25/25 08:00 Narrative Exam General: Awake. HEENT: Normocephalic, atraumatic, mucous membranes moist. Heart: Regular rate and rhythm, no murmurs. Lungs: Clear to auscultation with no wheezing or crackles. Abdomen: Mild abdominal tenderness to palpation. Soft, nondistended, positive bowel sounds. ?No guarding or rebound tenderness. Neurologic: Alert and oriented x3, no gross neurological deficit, and patient able to move all 4 extremities. Extremities: No edema. Skin: No rash or ecchymoses. Objective Labs 01/27/25 04:46 01/27/25 04:46 Labs: Laboratory Results - last 24 hr 01/26/25 04:20 WBC 6.9 RBC 4.52 Hgb 11.4 L Hct 34.7 L MCV 77 L MCH 25.2 MCHC 32.9 RDW Std Deviation 39.1 Plt Count 141 Neut % (Auto) 78 Lymph % (Auto) 13 [place] % (Auto) 9 Eos % (Auto) 0 Baso % (Auto) 0 Neut # (Auto) 5.4 Lymph # (Auto) 0.[address] [place] # (Auto) 0.6 Eos # (Auto) 0.0 Baso # (Auto) 0.0 Immature Gran # (Auto) 0.02 H Absolute Nucleated RBC 0.00 Immature Gran % 0 Nucleated RBC % 0 Sodium 136 Potassium 3.9 D Chloride 100 Carbon Dioxide 29.2 Anion Gap 7 BUN 6 L Creatinine 0.7 Estim Creat Clear Calc 61.0 eGFR > 60 BUN/Creatinine Ratio 9 L Glucose [address] Glu mg/dL 192 H Hemoglobin A1c 8.3 H Calculated Osmolality 274 L Calcium 9.7 Corrected Calcium 9.7 Phosphorus 2.5 Magnesium 2.1 Total Bilirubin 0.7 D AST 20 ALT 23 Alkaline Phosphatase 83 Total Protein 6.9 Albumin 4.3 Globulin 2.6 Albumin/Globulin Ratio 1.7 Quality Measures Quality Measures none Advance care planning discussed with:: patient Assessment & Plan Assessment Current Active Medications: Generic Name Dose Route Start Last Admin Trade Name Freq PRN Reason Stop Dose Admin Acetaminophen 650 mg 01/24/25 20:38 01/25/25 20:42 Acetaminophen 325 Mg Tablet PO 02/23/25 20:37 650 mg Q6H PRN Administration Fever >100.4 or pain 1-3 Hydrocodone Bitart/Acetaminophen 1 tab 01/24/25 20:38 01/26/25 07:43 Hydrocodone/Apap 5/325 Tablet PO 01/29/25 20:37 1 tab Q4HR PRN Administration PAIN SCALE 4-6 (Moderate Dextrose 25 ml 01/24/25 21:21 Dextrose 50%-Water Inj 50 Ml Syringe IV 02/23/25 21:20 Q15MIN PRN BG 50-70 responsive npo pt Dextrose 50 ml 01/24/25 21:21 Dextrose 50%-Water Inj 50 Ml Syringe IV 02/23/25 21:20 Q15MIN PRN BG <50 OR BG <70 & pt unresponsive Docusate Sodium 100 mg 01/25/25 09:00 01/26/25 07:44 Docusate Sod 100 Mg Capsule PO 02/24/25 08:59 100 mg QDAY NIKOLAS Administration Protocol Famotidine 20 mg 01/24/25 21:00 01/26/25 07:44 Famotidine Inj 10 Mg/Ml Vial 2 Ml IVP 02/23/25 20:59 20 mg Q12HR NIKOLAS Administration Glucagon 1 mg 01/24/25 21:21 Glucagon Inj 1 Mg Vial IM Q15MIN PRN BG <70, and no IV access Heparin Sodium (Porcine) 5,000 unit 01/24/25 21:00 01/26/25 07:43 Heparin Sod Inj 5000 Unit/Ml Vial SC 02/07/25 20:59 5,000 unit Q12HR NIKOLAS Administration Ceftriaxone Sodium 2 gm/ 50 mls @ 100 mls/hr 01/25/25 21:00 01/25/25 20:05 Sodium Chloride IV 02/01/25 20:59 100 mls/hr 2100 NIKOLAS Administration Insulin Degludec 14 unit 01/26/25 21:00 Insulin Degludec 5 Unit/0.05 Ml (Per 5 Units) SC 02/25/25 20:59 HS NIKOLAS Insulin Human Lispro 0 unit 01/25/25 07:30 01/26/25 07:42 Insulin Lispro (Admelog) 1 Unit/0.01 Ml Unit SC 02/24/25 07:29 3 unit ACHS NIKOLAS Administration Protocol Ondansetron HCl 4 mg 01/24/25 20:38 Ondansetron Inj 2 Mg/Ml Inj 2 Ml IVP 02/23/25 20:37 Q6H PRN NAUSEA OR VOMITING Protocol Plan 75-year-old female patient with significant history of hypertension diabetes mellitus, was brought in by family for evaluation regarding fever chills and diaphoresis. In the ED Sepsis alert was initiated right away for low-grade fever and tachycardia. Patient admitted for sepsis r/o 2/2 pyelonephritis #Complicated UTI/ suspected right pyelonephritis #Sepsis ruled out #Leukocytosis, down-trending Patient came in and found to have 2 or more SIRS criteria ([id number]>100.4, HR 113> 90, WBC >12,000, renal source, lactic acid 2.4). However, based upon further work-up, sepsis was ruled out and also patient does not noted to have any end organ damage. Patient endorses urinary discomfort with fevers chills and diaphoresis with 2 days of right flank pain. On inital evaluation the flank pain had resolved with pain management by the ED. She has not noticed any blood in her urine, recent vaginal dryness, no change in sexual partners as patient is a . No history of UTIs other than when she gave decades ago. She does not take SGLT2i. UA was turbid protein +1 glucose +4 blood +2 RBC 66 WBC 103 Leuk Esterase+ Sq epi +1. CTAP mild right hydronephrosis, Perinephric Stranding Dx: -01/24 BCx showed 2/2 NG24HR -01/24 UCx showed ___ Rx: -Ceftriaxone 2g IV qD (01/24--) -[place] 5 Q4HR for pain control 4-6 #Hx of T2DM requiring insulin Patient reports 30 units of insulin in AM at home and 1000mg BID metformin. Glucose 268 on admission. Dx: -01/26 HgbA1c 8.3 Rx: -ISS step 2 -Bedside glucose checks ACHS -Degludec 14 units at bedtime and will adjust the dose based on morning blood sugars Health Maintenance: Code status: Full DVT prophylaxis: Heparin subq Q12HR GI prophylaxis: Famotidine Diet: Carb consistent [place]: None Lines: PIV Supplemental O2: None Disposition: Med tele Patient plan of care was discussed with the attending physician Dr. Mcdonald and senior resident Dr. Adrián Sylvester, DO PGY-1
--- NOTE | 2025-01-26 10:37 | PC.PT ---
Attempt to initiate PT evaluation at 0900. Niece at bedside. As per patient and niece, Patient is I with transfers and ambulation and were able to ambulate already to the bathroom twice this morning. They both agreed that patient does not need Physical Therapy. Will cancel PT evaluation.
--- NOTE | 2025-01-26 14:49 | PC.SS ---
Vielka Mares is a 75-year-old female admitted to Med Surg for UTI. SS conducted bedside contact with the patient to complete initial assessment and to discuss discharge planning. Role and reason explained. Patient confirmed demographic information. Patient identifies gadiel Yarbrough [phone] as her surrogate decision maker. Pt states she is able to complete all ADL?s independently. No need for any source of DME. Pts childers not have a PCP but plans on going to [facility] [address] Pharmacy of choice is [facility]. Discharge options discussed and the pt wishes to return home.? Family will provide transportation upon DC. No further intervention required at this time, social media content specialist would be available to address any further concerns. DC Plan: Home Contact: Tataerica Leslie Address: Confirmed on face sheet PCP: [facility]
[2025-01-26] MEDS: BENZONATATE 100 MG CAPSULE PO (15:07)
[2025-01-26] MEDS: ACETAMINOPHEN 325 MG TABLET 650 MG PO (16:38)
[2025-01-26] MEDS: PIPER/TAZO INJ 4.5 GM in SODIUM CHLORIDE 0.9% (POP) 100 ML IV (19:33)
[2025-01-26] MEDS: FAMOTIDINE 20 MG TABLET PO (20:27)
[2025-01-26] MEDS: INSULIN DEGLUDEC 5 UNIT/0.05 ML (PER 5 UNITS) 14 UNIT SC (20:29)
[2025-01-27] VITALS (11 sets, daily range): BP systolic 113–137; BP diastolic 63–88; PULSE 62–81; RESP 16–97; TEMP 36.3–38.3; O2SAT 93–100
[2025-01-27] MEDS: PIPER/TAZO INJ 4.5 GM in SODIUM CHLORIDE 0.9% (POP) 100 ML IV ×5 (00:08→23:33)
[2025-01-27 05:52] LABS: Basophils # (Auto) 0.0 Thou/mm3 (0.0-0.2); Basophils % (Auto) 1 % (0-2.5); Eosinophils # (Auto) 0.1 Thou/mm3 (0.0-0.5); Eosinophils % (Auto) 3 % (0-10); Hematocrit 31.4 % (36.0-46.0); Hemoglobin 10.3 g/dL (12.0-16.0); Immature Granulocytes Auto 0.03 Thou/mm3 (0.00-0.00); Lymphocytes # (Auto) 0.6 Thou/mm3 (1.0-4.8); Lymphocytes % (Auto) 14 % (10-50); Mean Corpuscular HGB Conc 32.8 g/dl (31.0-37.0); Mean Corpuscular Hemoglobin 24.9 pg (25.0-35.0); Mean Corpuscular Volume 76 fL (80-100); Monocytes # (Auto) 0.6 Thou/mm3 (0.0-0.8); Monocytes % (Auto) 14 % (0-12); Neutrophils # (Auto) 2.9 Thou/mm3 (1.8-7.7); Neutrophils % (Auto) 69 % (37-80); Nucleated Red Blood Cell # 0.00 Thou/mm3 (0.00-0.00); Nucleated Red Blood Cell % 0 /100 WBC (0); Platelet Count 135 Thou/mm3 (140-440); RDW Standard Deviation 38.8 fL (36.4-46.3); Red Blood Count 4.13 Miln/mm3 (4.00-5.20); White Blood Count 4.2 Thou/mm3 (3.6-11.0)
[2025-01-27 06:14] LABS: Alanine Aminotransferase 18 U/L (10-49); Albumin, Serum 3.9 gm/dL (3.4-4.8); Albumin/Globulin Ratio 1.5 (1.2-2.2); Alkaline Phosphatase 82 U/L (46-116); Anion Gap 9 (7-16); Aspartate Amino Transferase 17 U/L (0-34); BUN/Creatinine Ratio 8 Ratio (12-20); Bilirubin,Total 0.6 mg/dL (0.3-1.2); Blood Urea Nitrogen 5 mg/dL (9-23); Calcium 9.4 mg/dL (8.3-10.6); Calcium (Corrected) 9.5 mg/dL (8.5-10.1); Carbon Dioxide 25.7 mMol/L (20.0-31.0); Chloride 102 mMol/L (98-107); Creatinine (Component) 0.6 mg/dL (0.6-1.3); Estimated Creatinine Clearance 71.2 mL/min (>60); Globulin 2.6 gm/dL (2.3-3.5); Glucose 178 mg/dL (74-106); Magnesium 1.8 mg/dL (1.6-2.6); Osmolality,Calculated 275 (275-295); Phosphorous 2.4 mg/dL (2.4-5.1); Potassium 3.8 mMol/L (3.4-5.1); Sodium 137 mMol/L (136-145); Total Protein 6.5 gm/dL (5.7-8.2); eGFR > 60 See Note
[2025-01-27] MEDS: ACETAMINOPHEN 325 MG TABLET 650 MG PO (07:42)
[2025-01-27] MEDS: INSULIN LISPRO (AdmeLOG) 1 UNIT/0.01 ML UNIT SC ×4 (07:46→20:27)
[2025-01-27] MEDS: DOCUSATE SOD 100 MG CAPSULE PO (09:31)
[2025-01-27] MEDS: HEPARIN SOD INJ 5000 UNIT/ML VIAL SC ×2 (09:31→20:26)
[2025-01-27] MEDS: FAMOTIDINE 20 MG TABLET PO ×2 (09:31→20:26)
[2025-01-27 13:30] LABS: Cocci Serology, IgM Negative (Negative)
--- NOTE | 2025-01-27 16:27 | PD.RESPRO ---
Documentation for date of: 01/27/25 Subjective Subjective Interval history: Patient is seen and examined at bedside. Noted to have a febrile episode of 100.9 degrees on this morning. Otherwise patient reported that she is doing well since last night. Yesterday, antibiotic was changed from ceftriaxone to Zosyn in view of continuous febrile episode. Urine cultures resulted this morning showed E. coli which is almost pansensitive. For now, will continue Zosyn and plan to discharge tomorrow. Adjusted insulin degludec to 18 units based on morning blood sugars. Exam Vital Signs Temp Pulse Resp BP Pulse Ox O2 Del Method O2 Flow Rate 98.1 F 67 17 113/63 93 L Room Air 2 01/27/25 12:00 01/27/25 12:00 01/27/25 12:00 01/27/25 12:00 01/27/25 12:00 01/27/25 12:00 01/25/25 08:00 Narrative Exam General: Awake. HEENT: Normocephalic, atraumatic, mucous membranes moist. Heart: Regular rate and rhythm, no murmurs. Lungs: Clear to auscultation with no wheezing or crackles. Abdomen: Soft, nondistended, nontender, positive bowel sounds. ?No guarding or rebound tenderness. Neurologic: Alert and oriented x3, no gross neurological deficit, and patient able to move all 4 extremities. Extremities: No edema. Skin: No rash or ecchymoses. Objective Labs 01/28/25 05:29 01/28/25 05:29 Labs: Laboratory Results - last 24 hr 01/27/25 01/27/25 04:46 11:13 WBC 4.2 RBC 4.13 Hgb 10.3 L Hct 31.4 L MCV 76 L MCH 24.9 L MCHC 32.8 RDW Std Deviation 38.8 Plt Count 135 L Neut % (Auto) 69 Lymph % (Auto) 14 [place] % (Auto) 14 H Eos % (Auto) 3 Baso % (Auto) 1 Neut # (Auto) 2.9 Lymph # (Auto) 0.6 L [place] # (Auto) 0.6 Eos # (Auto) 0.1 Baso # (Auto) 0.0 Immature Gran # (Auto) 0.03 H Absolute Nucleated RBC 0.00 Immature Gran % 1 H Nucleated RBC % 0 Sodium 137 Potassium 3.8 Chloride 102 Carbon Dioxide 25.7 Anion Gap 9 BUN 5 L Creatinine 0.6 Estim Creat Clear Calc 71.2 eGFR > 60 BUN/Creatinine Ratio 8 L Glucose 178 H Calculated Osmolality 275 Calcium 9.4 Corrected Calcium 9.5 Phosphorus 2.4 Magnesium 1.8 Total Bilirubin 0.6 AST 17 ALT 18 Alkaline Phosphatase 82 Total Protein 6.5 Albumin 3.9 Globulin 2.6 Albumin/Globulin Ratio 1.5 Coccidioides IgM Ab Negative Quality Measures Quality Measures VTE prophylaxis Advance care planning discussed with:: patient Assessment & Plan Assessment Current Active Medications: Generic Name Dose Route Start Last Admin Trade Name Freq PRN Reason Stop Dose Admin Acetaminophen 650 mg 01/24/25 20:38 01/27/25 07:42 Acetaminophen 325 Mg Tablet PO 02/23/25 20:37 650 mg Q6H PRN Administration Fever >100.4 or pain 1-3 Hydrocodone Bitart/Acetaminophen 1 tab 01/24/25 20:38 01/26/25 15:06 Hydrocodone/Apap 5/325 Tablet PO 01/29/25 20:37 1 tab Q4HR PRN Administration PAIN SCALE 4-6 (Moderate Benzonatate 100 mg 01/26/25 14:41 01/26/25 15:07 Benzonatate 100 Mg Capsule PO 02/25/25 14:40 100 mg Q8HR PRN Administration COUGH Protocol Dextrose 25 ml 01/24/25 21:21 Dextrose 50%-Water Inj 50 Ml Syringe IV 02/23/25 21:20 Q15MIN PRN BG 50-70 responsive npo pt Dextrose 50 ml 01/24/25 21:21 Dextrose 50%-Water Inj 50 Ml Syringe IV 02/23/25 21:20 Q15MIN PRN BG <50 OR BG <70 & pt unresponsive Docusate Sodium 100 mg 01/25/25 09:00 01/27/25 09:31 Docusate Sod 100 Mg Capsule PO 02/24/25 08:59 100 mg QDAY NIKOLAS Administration Protocol Famotidine 20 mg 01/26/25 21:00 01/27/25 09:31 Famotidine 20 Mg Tablet PO 02/25/25 20:59 20 mg Q12HR NIKOLAS Administration Glucagon 1 mg 01/24/25 21:21 Glucagon Inj 1 Mg Vial IM Q15MIN PRN BG <70, and no IV access Heparin Sodium (Porcine) 5,000 unit 01/24/25 21:00 01/27/25 09:31 Heparin Sod Inj 5000 Unit/Ml Vial SC 02/07/25 20:59 5,000 unit Q12HR NIKOLAS Administration Piperacillin Sod/Tazobactam 100 mls @ 200 mls/hr 01/26/25 19:03 01/27/25 11:50 Sod 4.5 gm/ Sodium Chloride IV 02/02/25 19:02 200 mls/hr Q6HR NIKOLAS Administration Protocol Insulin Degludec 18 unit 01/27/25 21:00 Insulin Degludec 5 Unit/0.05 Ml (Per 5 Units) SC 02/26/25 20:59 HS NIKOLAS Insulin Human Lispro 0 unit 01/25/25 07:30 01/27/25 11:50 Insulin Lispro (Admelog) 1 Unit/0.01 Ml Unit SC 02/24/25 07:29 3 unit ACHS NIKOLAS Administration Protocol Ondansetron HCl 4 mg 01/24/25 20:38 Ondansetron Inj 2 Mg/Ml Inj 2 Ml IVP 02/23/25 20:37 Q6H PRN NAUSEA OR VOMITING Protocol Phenol/Menthol 1 ml 01/26/25 14:51 Phenol/Na Phenolate (Chloraseptic) [place] 180 Ml Btl PO 02/25/25 14:50 Q4H PRN SORE THROAT Plan 75-year-old female patient with significant history of hypertension diabetes mellitus, was brought in by family for evaluation regarding fever chills and diaphoresis. In the ED Sepsis alert was initiated right away for low-grade fever and tachycardia. Patient admitted for sepsis r/o 2/2 pyelonephritis #Complicated UTI/ suspected right pyelonephritis #Sepsis ruled out #Leukocytosis, down-trending Patient came in and found to have 2 or more SIRS criteria ([id number]>100.4, HR 113> 90, WBC >12,000, renal source, lactic acid 2.4). However, based upon further work-up, sepsis was ruled out and also patient does not noted to have any end organ damage. Patient endorses urinary discomfort with fevers chills and diaphoresis with 2 days of right flank pain. On inital evaluation the flank pain had resolved with pain management by the ED. She has not noticed any blood in her urine, recent vaginal dryness, no change in sexual partners as patient is a . No history of UTIs other than when she gave decades ago. She does not take SGLT2i. UA was turbid protein +1 glucose +4 blood +2 RBC 66 WBC 103 Leuk Esterase+ Sq epi +1. CTAP mild right hydronephrosis, Perinephric Stranding Dx: -01/24 BCx showed 2/2 NG24HR -01/24 UCx showed E.coli Rx: -Ceftriaxone 2g IV qD (01/24-01/26), started on zosyn in view of continuous febrile episodes -[place] 5 Q4HR for pain control 4-6 #Hx of T2DM requiring insulin Patient reports 30 units of insulin in AM at home and 1000mg BID metformin. Glucose 268 on admission. Dx: -01/26 HgbA1c 8.3 Rx: -ISS step 2 -Bedside glucose checks ACHS -Degludec 18 units at bedtime and will adjust the dose based on morning blood sugars Health Maintenance: Code status: Full DVT prophylaxis: Heparin subq Q12HR GI prophylaxis: Famotidine Diet: Carb consistent [place]: None Lines: PIV Supplemental O2: None Disposition: Med tele Patient plan of care was discussed with the attending physician, Dr. Kyle Sparrow, PGY2 Attending Provider Attestation/Addendum I have examined the patient, reviewed labs and imaging findings, discussed the case with the resident(s), and reviewed entered orders. I agree with the plan of care as outlined in this note, with these additional summaries/recommendations: Patient seen at bedside. She reports minor improvement in urinary symptoms. Patient continues to spike recurrent fevers. Antibiotics broadened yesterday with slight improvement in fever today. Pending results of urine and blood cultures. Continue IV antibiotic. Cocci serology ordered. If no improvement with antibiotic change then we will evaluate for other causes of intractable fever unrelated to infection. Continue insulin sliding scale for diabetes mellitus type 2. Target blood sugar of 140-180 while hospitalized. Patient will return home when medically cleared for discharge. Patient updated on the plan and agreement. All questions answered to satisfaction. Please see residents note for additional details and management. Dr. Kyle MD
[2025-01-27] MEDS: INSULIN DEGLUDEC 5 UNIT/0.05 ML (PER 5 UNITS) 18 UNIT SC (20:27)
[2025-01-28] VITALS (11 sets, daily range): BP systolic 121–154; BP diastolic 62–99; PULSE 60–78; RESP 16–99; TEMP 36.5–36.8; O2SAT 96–100; BMI 25.9
--- NOTE | 2025-01-28 01:44 | EKG_ITS ---
[facility] Test Date: 2025-01-28 Pat Name: CORIE VILLAFANA [facility] Gender: Female [employer] Maker: AGNIESZKA : 1950 Requested By: River Riley Order Number: [id number] Reading MD: River Riley Measurements Intervals [place] Rate: 65 P: 57 NM: 178 QRS: 23 QRSD: 83 T: 13 QT: 418 QTc: 435 Interpretive Statements SINUS RHYTHM Compared to ECG 01/24/2025 16:17:17 Sinus tachycardia no longer present Myocardial infarct finding no longer present /store/S0/[id number].pdf
[2025-01-28] MEDS: PIPER/TAZO INJ 4.5 GM in SODIUM CHLORIDE 0.9% (POP) 100 ML IV ×2 (05:22→12:26)
[2025-01-28 06:10] LABS: Basophils # (Auto) 0.0 Thou/mm3 (0.0-0.2); Basophils % (Auto) 1 % (0-2.5); Eosinophils # (Auto) 0.2 Thou/mm3 (0.0-0.5); Eosinophils % (Auto) 5 % (0-10); Hematocrit 30.9 % (36.0-46.0); Hemoglobin 10.2 g/dL (12.0-16.0); Immature Granulocytes Auto 0.03 Thou/mm3 (0.00-0.00); Lymphocytes # (Auto) 0.8 Thou/mm3 (1.0-4.8); Lymphocytes % (Auto) 21 % (10-50); Mean Corpuscular HGB Conc 33.0 g/dl (31.0-37.0); Mean Corpuscular Hemoglobin 25.2 pg (25.0-35.0); Mean Corpuscular Volume 76 fL (80-100); Monocytes # (Auto) 0.6 Thou/mm3 (0.0-0.8); Monocytes % (Auto) 15 % (0-12); Neutrophils # (Auto) 2.2 Thou/mm3 (1.8-7.7); Neutrophils % (Auto) 58 % (37-80); Nucleated Red Blood Cell # 0.00 Thou/mm3 (0.00-0.00); Nucleated Red Blood Cell % 0 /100 WBC (0); Platelet Count 171 Thou/mm3 (140-440); RDW Standard Deviation 39.2 fL (36.4-46.3); Red Blood Count 4.05 Miln/mm3 (4.00-5.20); White Blood Count 3.9 Thou/mm3 (3.6-11.0)
[2025-01-28 06:27] LABS: Alanine Aminotransferase 24 U/L (10-49); Albumin, Serum 3.9 gm/dL (3.4-4.8); Albumin/Globulin Ratio 1.8 (1.2-2.2); Alkaline Phosphatase 86 U/L (46-116); Anion Gap 8 (7-16); Aspartate Amino Transferase 29 U/L (0-34); BUN/Creatinine Ratio 12 Ratio (12-20); Bilirubin,Total 0.4 mg/dL (0.3-1.2); Blood Urea Nitrogen 7 mg/dL (9-23); Calcium 9.1 mg/dL (8.3-10.6); Calcium (Corrected) 9.2 mg/dL (8.5-10.1); Carbon Dioxide 28.3 mMol/L (20.0-31.0); Chloride 105 mMol/L (98-107); Creatinine (Component) 0.6 mg/dL (0.6-1.3); Estimated Creatinine Clearance 71.2 mL/min (>60); Globulin 2.2 gm/dL (2.3-3.5); Glucose 157 mg/dL (74-106); Magnesium 1.9 mg/dL (1.6-2.6); Osmolality,Calculated 282 (275-295); Phosphorous 3.0 mg/dL (2.4-5.1); Potassium 4.3 mMol/L (3.4-5.1); Sodium 141 mMol/L (136-145); Total Protein 6.1 gm/dL (5.7-8.2); eGFR > 60 See Note
--- NOTE | 2025-01-28 07:58 | CHAP ---
Patient was visited by a Spiritual Care Volunteer on 01/27/2025 between 1410 and 1712 and received comfort, encouragement and/or prayer.
[2025-01-28] MEDS: HEPARIN SOD INJ 5000 UNIT/ML VIAL SC (08:10)
[2025-01-28] MEDS: FAMOTIDINE 20 MG TABLET PO (08:10)
--- NOTE | 2025-01-28 10:37 | ESPR_ITS ---
<Statement entered by Oriana Sampson MD - 01/29/25 07:39> Patient was seen and examined by me personally. I have directly supervised and reviewed documentation by the team resident and agree with its findings with any exceptions or additional findings as below. Plan of care was discussed with the attending, Dr. Wright. Oriana Sampson, PGY-3 Documentation for date of: 01/28/25 Subjective Subjective Interval history: At around 1600 yesterday, patient spiked a fever of 100.5 despite being on Zosyn but the frequency and severity of her fevers seems to be trending down. Patient was examined at bedside; they appear A&Ox3 and in NAD. She denies any ongoing dysuria or burning sensation with micturition. Vitals/labs today significant for BP 152/74, Hgb 11.4->10.2. Coccidioides IgM and IgG have returned negative. Physical exam was benign and unremarkable. Although patient still spiked a fever, yesterday, she appears clinically improved overall. Exam Vital Signs Temp Pulse Resp BP Pulse Ox O2 Del Method O2 Flow Rate 98.2 F 78 18 152/74 H 96 Room Air 2 01/28/25 07:35 01/28/25 09:30 01/28/25 07:55 01/28/25 07:35 01/28/25 07:35 01/28/25 07:35 01/25/25 08:00 Narrative Exam General: A/O x3, no acute distress. Skin: Warm, dry, intact, no obvious rash. Head: Normocephalic, atraumatic. Eyes: PERRL, EOMI. Anicteric, vision grossly intact. Ears: No ear pain, no ear discharge, Hearing grossly intact. Nose: No nasal discharge. Mouth/Throat: Oral mucosa moist. No obvious lesions in oropharynx. Neck: Neck supple, non-tender, no cervical lymphadenopathy. Cardiovascular: Regular rate and rhythm, no murmur, no JVD or carotid bruits. +S1/S2. Respiratory: Bilateral lungs are clear to auscultation, respirations unlabored, no crackles, no wheezing. No accessory muscle use. Gastrointestinal: Soft, nontender, non-distended, no palpable masses. No guarding or rebound tenderness. Peristalsis present. Extremities: Symmetrical, no significant deformities. No edema, no cyanosis, no clubbing. 2+ radial pulse bilaterally, 2+ posterior tibial pulse bilaterally. Neuro: No focal deficits observed. Conversant, moving all extremities. No overt cerebellar signs/incoordination. Psychiatric: Cooperative, appropriate affect. Objective Labs 01/28/25 05:29 01/28/25 05:29 Labs: Laboratory Results - last 24 hr 01/27/25 01/28/25 11:13 05:29 WBC 3.9 RBC 4.05 Hgb 10.2 L Hct 30.9 L MCV 76 L MCH 25.2 MCHC 33.0 RDW Std Deviation 39.2 Plt Count 171 D Neut % (Auto) 58 Lymph % (Auto) 21 [place] % (Auto) 15 H Eos % (Auto) 5 Baso % (Auto) 1 Neut # (Auto) 2.2 Lymph # (Auto) 0.8 L [place] # (Auto) 0.6 Eos # (Auto) 0.2 Baso # (Auto) 0.0 Immature Gran # (Auto) 0.03 H Absolute Nucleated RBC 0.00 Immature Gran % 1 H Nucleated RBC % 0 Sodium 141 Potassium 4.3 D Chloride 105 Carbon Dioxide 28.3 Anion Gap 8 BUN 7 L Creatinine 0.6 Estim Creat Clear Calc 71.2 eGFR > 60 BUN/Creatinine Ratio 12 Glucose 157 H Calculated Osmolality 282 Calcium 9.1 Corrected Calcium 9.2 Phosphorus 3.0 Magnesium 1.9 Total Bilirubin 0.4 AST 29 ALT 24 Alkaline Phosphatase 86 Total Protein 6.1 Albumin 3.9 Globulin 2.2 L Albumin/Globulin Ratio 1.8 Coccidioides IgM Ab Negative Quality Measures Quality Measures VTE prophylaxis Advance care planning discussed with:: patient Assessment & Plan Assessment Current Active Medications: Generic Name Dose Route Start Last Admin Trade Name Nicolaq PRN Reason Stop Dose Admin Acetaminophen 650 mg 01/24/25 20:38 01/27/25 07:42 Acetaminophen 325 Mg Tablet PO 02/23/25 20:37 650 mg Q6H PRN Administration Fever >100.4 or pain 1-3 Hydrocodone Bitart/Acetaminophen 1 tab 01/24/25 20:38 01/26/25 15:06 Hydrocodone/Apap 5/325 Tablet PO 01/29/25 20:37 1 tab Q4HR PRN Administration PAIN SCALE 4-6 (Moderate Benzonatate 100 mg 01/26/25 14:41 01/26/25 15:07 Benzonatate 100 Mg Capsule PO 02/25/25 14:40 100 mg Q8HR PRN Administration COUGH Protocol Dextrose 25 ml 01/24/25 21:21 Dextrose 50%-Water Inj 50 Ml Syringe IV 02/23/25 21:20 Q15MIN PRN BG 50-70 responsive npo pt Dextrose 50 ml 01/24/25 21:21 Dextrose 50%-Water Inj 50 Ml Syringe IV 02/23/25 21:20 Q15MIN PRN BG <50 OR BG <70 & pt unresponsive Docusate Sodium 100 mg 01/25/25 09:00 01/28/25 08:14 Docusate Sod 100 Mg Capsule PO 02/24/25 08:59 Not Given QDAY [facility] Protocol Famotidine 20 mg 01/26/25 21:00 01/28/25 08:10 Famotidine 20 Mg Tablet PO 02/25/25 20:59 20 mg Q12HR NIKOLAS Administration Glucagon 1 mg 01/24/25 21:21 Glucagon Inj 1 Mg Vial IM Q15MIN PRN BG <70, and no IV access Heparin Sodium (Porcine) 5,000 unit 01/24/25 21:00 01/28/25 08:10 Heparin Sod Inj 5000 Unit/Ml Vial SC 02/07/25 20:59 5,000 unit Q12HR NIKOLAS Administration Piperacillin Sod/Tazobactam 100 mls @ 200 mls/hr 01/26/25 19:03 01/28/25 05:22 Sod 4.5 gm/ Sodium Chloride IV 02/02/25 19:02 200 mls/hr Q6HR NIKOLAS Administration Protocol Insulin Degludec 18 unit 01/27/25 21:00 01/27/25 20:27 Insulin Degludec 5 Unit/0.05 Ml (Per 5 Units) SC 02/26/25 20:59 18 unit HS NIKOLAS Administration Insulin Human Lispro 0 unit 01/25/25 07:30 01/28/25 07:42 Insulin Lispro (Admelog) 1 Unit/0.01 Ml Unit SC 02/24/25 07:29 Not Given ACHS [facility] Protocol Ondansetron HCl 4 mg 01/24/25 20:38 Ondansetron Inj 2 Mg/Ml Inj 2 Ml IVP 02/23/25 20:37 Q6H PRN NAUSEA OR VOMITING Protocol Phenol/Menthol 1 ml 01/26/25 14:51 Phenol/Na Phenolate (Chloraseptic) [place] 180 Ml Btl PO 02/25/25 14:50 Q4H PRN SORE THROAT Plan 75-year-old female patient with significant history of hypertension diabetes mellitus, was brought in by family for evaluation regarding fever chills and diaphoresis. In the ED Sepsis alert was initiated right away for low-grade fever and tachycardia. Patient admitted for sepsis r/o 2/2 pyelonephritis #Complicated UTI/ suspected right pyelonephritis #Sepsis ruled out #Leukocytosis, down-trending Patient came in and found to have 2 or more SIRS criteria (Mync523>100.4, HR 113> 90, WBC >12,000, renal source, lactic acid 2.4). However, based upon further work-up, sepsis was ruled out and also patient does not noted to have any end organ damage. Patient endorses urinary discomfort with fevers chills and diaphoresis with 2 days of right flank pain. On inital evaluation the flank pain had resolved with pain management by the ED. She has not noticed any blood in her urine, recent vaginal dryness, no change in sexual partners as patient is a . No history of UTIs other than when she gave decades ago. She does not take SGLT2i. UA was turbid protein +1 glucose +4 blood +2 RBC 66 WBC 103 Leuk Esterase+ Sq epi +1. CTAP mild right hydronephrosis, Perinephric Stranding Dx: -01/24 BCx showed 2/2 NG48HR -01/24 UCx showed E.coli resistant only to ampicillin, Unasyn, and Bactrim Rx: -Zosyn 4.5g IV q6HR (01/26--) -s/p Ceftriaxone 2g IV qD (01/24-01/26) -[place] 5/325 PO Q4HR for Pain Level 4-6 #Hx of T2DM requiring insulin Patient reports 30 units of insulin in AM at home and 1000mg BID metformin. Glucose 268 on admission. Dx: -01/26 HgbA1c 8.3 Rx: -ISS step 2 -Bedside glucose checks ACHS -Degludec 18 units at bedtime and will adjust the dose based on morning blood sugars Health Maintenance: Code status: Full DVT prophylaxis: Heparin subq Q12HR GI prophylaxis: Famotidine Diet: Carb consistent [place]: None Lines: PIV Supplemental O2: None Disposition: Med tele Patient plan of care was discussed with the attending physician, Dr. Kyle Sylvester, PGY-1 Attending Provider Attestation/Addendum I have examined the patient, reviewed labs and imaging findings, discussed the case with the resident(s), and reviewed entered orders. I agree with the plan of care as outlined in this note. Dr. Kyle MD
--- NOTE | 2025-01-28 11:31 | PC.SS ---
Rounding: Pt to be reassessed and poss DC home
[2025-01-28 11:46] LABS: Cocci Serology, IgG Negative (Negative)
[2025-01-28] MEDS: INSULIN LISPRO (AdmeLOG) 1 UNIT/0.01 ML UNIT SC (12:26)
--- NOTE | 2025-01-30 14:37 | ESDS_ITS ---
<Statement entered by Oriana Sampson MD - 01/30/25 17:06> Patient was seen and examined by me personally. I have reviewed the below documentation by the team resident and agree with its findings with any exceptions as below. Discharge plan was discussed with the attending, Dr. Wright. Oriana Sampson, PGY-3 Planned Discharge Date 01/28/25 DS: Providers Provider Date of admission: 01/24/25 20:38 Primary care physician: Physician No Primary/Family Admitting Provider: Ez Vaughan MD Attending Provider on Admission: Camden Wright MD Consults: 01/24/25 23:01 Referral Cassidy Routine Comment: Referral Respiratory Therapy Routine Comment: Attending Provider on DC: Camden Wright MD Discharging Provider: Brandyn Sylvester MD DS: Diagnosis Problem List Completed Was Problem List Reviewed/Reconciled?: Yes Hospital Course Hospital Course Hospital course: Summary: 75-year-old female patient with significant history of hypertension diabetes mellitus, was brought in by family on 01/24/25 for evaluation regarding fever chills and diaphoresis. In the ED Sepsis alert was initiated right away for low- grade fever and tachycardia. Patient admitted for sepsis r/o 2/2 pyelonephritis Hospital: During patient's hospital course, she was treated with Rocephin IV (01/24-01/26) and Zosyn IV (01/26-01/28) for her complicated UTI with right pyelonephritis. 01/24 BCx ultimately showed NG48HR and 01/24 UCx grew E.coli resistant only to ampicillin, Unasyn, and Bactrim. By 01/28, patient was deemed clinically stabilized and discharged home with instructions to continue taking Macrobid PO for 5 more days. Patient is safe to discharge. Further discharge instructions below. -Follow-up with PCP within 1 week of discharge. If you do not have appointment, please follow-up with the [facility] with Dr. Sparrow. Call [phone] to make an appointment. -Recommended to take Nitrofurantoin 100mg twice daily for 5days -Recommended to hold Blood pressure medications for now and restart after u see your PCP on blood pressure medications -Recommended to take Januvia 100mg once daily and follow up with PCP for adjustment of Diabetic medications -Continue rest of the home medications -Return to ED if symptoms persist or return Hospital Diagnoses: #Complicated UTI/ suspected right pyelonephritis #Sepsis ruled out #Leukocytosis, down-trending #Asymptomatic mild hyponatremia #Hx of T2DM requiring insulin Status at Discharge Cognitive/Behavioral Status at Discharge: stable Functional Status at Discharge: independent ambulation Overall Status at Discharge: patient is back to baseline Patient's care plan was discussed with my attending, Dr. Wright, and senior resident, Dr. Sampson. Brandyn Sylvester, DO Internal Medicine, PGY-1 Time Spent with Patient Time attestation: Total time spent providing and/or coordinating discharge services: Time spent: Greater than 30 minutes Exam Vital Signs Temp Pulse Resp BP Pulse Ox O2 Del Method O2 Flow Rate 98 F 72 18 130/70 97 Room Air 2 01/28/25 16:00 01/28/25 16:00 01/28/25 16:00 01/28/25 16:00 01/28/25 16:00 01/28/25 16:00 01/25/25 08:00 Narrative Exam General: A/O x3, no acute distress. Skin: Warm, dry, intact, no obvious rash. Head: Normocephalic, atraumatic. Eyes: PERRL, EOMI. Anicteric, vision grossly intact. Ears: No ear pain, no ear discharge, Hearing grossly intact. Nose: No nasal discharge. Mouth/Throat: Oral mucosa moist. No obvious lesions in oropharynx. Neck: Neck supple, non-tender, no cervical lymphadenopathy. Cardiovascular: Regular rate and rhythm, no murmur, no JVD or carotid bruits. +S1/S2. Respiratory: Bilateral lungs are clear to auscultation, respirations unlabored, no crackles, no wheezing. No accessory muscle use. Gastrointestinal: Soft, nontender, non-distended, no palpable masses. No guarding or rebound tenderness. Peristalsis present. Extremities: Symmetrical, no significant deformities. No edema, no cyanosis, no clubbing. 2+ radial pulse bilaterally, 2+ posterior tibial pulse bilaterally. Neuro: No focal deficits observed. Conversant, moving all extremities. No overt cerebellar signs/incoordination. Psychiatric: Cooperative, appropriate affect. Discharge Plan Plan Patient Disposition: HOME (Self Care) Patient condition on transfer: Stable Care Plan Goals: -Follow-up with PCP within 1 week of discharge. If you do not have appointment, please follow-up with the [facility] with Dr. Sparrow. Call [phone] to make an appointment. -Recommended to take Nitrofurantoin 100mg twice daily for 5days -Recommended to hold Blood pressure medications for now and restart after u see your PCP on blood pressure medications -Recommended to take Januvia 100mg once daily and follow up with PCP for adjustment of Diabetic medications -Continue rest of the home medications -Return to ED if symptoms persist or return Prescriptions/Referrals Prescriptions/Med Rec: New nitrofurantoin monohyd/m-cryst [Macrobid] 100 mg capsule 100 mg PO BID Qty: 10 0RF Rx Instructions: must administer with a meal/food Januvia 100 mg tablet 100 mg PO QDAY Qty: 30 0RF Continued metformin 1,000 mg tablet 1,000 mg PO BID atorvastatin [Lipitor] 20 mg tablet 20 mg PO QDAY Held amlodipine 10 mg tablet 10 mg PO QDAY Hold Instructions: Resume on 02/11/25. till u see PCP lisinopril-hydrochlorothiazide 20-25 mg tablet 1 tab PO QDAY Hold Instructions: Resume on 02/11/25. till u see PCP Referrals: No Primary/Family,Physician [Primary Care Provider] Patient/Caregiver Discharge Instructions Education Materials: Anatomy of the Female Urinary Tract, Understanding Urinary Tract ..., When to Use Antibiotics Print Language: Sammarinese Stand Alone Forms: [facility] Award Info., Patient Portal Info Letter Discharge Order Discharge Orders: Discharge (Routine); Ordered 01/28/25 Ordered By: Lamine Sparrow Quality Discharge Quality Measures VTE prophylaxis and sepsis MD Attestestation MD Attestation I have examined the patient, reviewed labs and imaging findings, discussed the case with the resident(s), and reviewed entered orders. I agree with the plan of care as outlined in this note. Time Spent; [address] Kyle MD
== END 2025-01-28 17:40 | disposition home or self-care (01) | DRG 872 ==
LOC: SERX 19:56 → SERHOLD 20:49 → S3SX 22:35
PROVIDERS: Nurse Practitioner Family; Admitting Provider Student in an Organized Health Care Education/Training Program; Emergency Provider Emergency Medicine; Visit Provider Student in an Organized Health Care Education/Training Program
DX: A41.51 Sepsis due to Escherichia coli [E. coli] (principal); N13.6 Pyonephrosis; E87.1 Hypo-osmolality and hyponatremia; Z16.11 Resistance to penicillins; Z16.29 Resistance to other single specified antibiotic; E87.20 Acidosis, unspecified; I47.20 Ventricular tachycardia, unspecified; I10 Essential (primary) hypertension; E11.65 Type 2 diabetes mellitus with hyperglycemia; Z79.4 Long term (current) use of insulin; Z79.84 Long term (current) use of oral hypoglycemic drugs
CPT/HCPCS: 36415; 71045; 74176; 80053; 80061; 81001; 83036; 83605; 83615; 83690; 83735; 83880; 84100; 84145; 84484; 85025; 85610; 85730; 86331; 86635; 87040; 87077; 87086; 87186; 87635; 93005; 93225; 96361; 96365; 96375; 99285; J0696; J1644; J1815; J2543; J3475; J3490; J7050; J7120; A9270